=== PATIENT | female | born 1990 | race Hispanic/Latino ===

== ENCOUNTER 2021-02-13 13:24 | Outpatient (CLI) | payer OTHER ==
[2021-02-14 07:39] LABS: SARS-CoV-2 PCR by NAA Not Detected (NotDetected)
== END 2021-02-13 13:25 | disposition home or self-care (01) ==
LOC: CSHLAB 13:24
PROVIDERS: ATTEND Obstetrics & Gynecology
DX: Z20.822 Contact with and (suspected) exposure to COVID-19 (principal)
CPT/HCPCS: U0003; U0005

== ENCOUNTER 2021-02-15 17:15 | Inpatient (IN) | payer OTHER ==
[~2021-02-15 17:15] MED LIST: Bicitra 30 ML UDCUP PO PRN; Famotidine/PF 20 mg/2ml Vial SLOW IVP PRN; Lactated Ringer's 1,000 ML IV SCH; Ondansetron PF 4 MG/2 ML Vial IVP PRN; Promethazine HCl 25 MG/ML VIAL IM PRN; hydrALAZINE 20 MG/ML VIAL SLOW IVP PRN
[2021-02-16 13:36] VITALS: BMI 33.5
[2021-02-16 14:44] LABS: Hemoglobin 8.7 g/dL (12.0-15.5); Mean Corpuscular HGB CONC 31.2 g/dL (32.0-36.0); Mean Corpuscular Hemoglobin 23.6 pg (27.0-33.0); Mean Corpuscular Volume 75.6 fl (81.6-98.3); Platelet Count 264 10x3/uL (150-450); RBC Distribution Width 15.8 % (11.5-14.5); Red Blood Cell (RBC) Count 3.69 10x6/uL (3.90-5.03); White Blood Cell (WBC) Count 6.1 10x3/uL (3.5-10.5)
[2021-02-16 15:22] LABS: Syphilis Antibody Nonreactive (Nonreactive); Syphilis Antibody Index 0.05 S/CO (<1.00 Non-Reactive)
[2021-02-16 15:34] LABS: Hep B Surf Ag Non-Reactive S/CO (NonReactive)
[2021-02-16 15:39] LABS: HBSAg Index 0.17 S/CO (0-0.99); HIV (1/2) Antibody/Antigen Non-Reactive (NonReactive); HIV 1/2 INDEX 0.17 S/CO (<1.00)
[2021-02-16] MEDS ORDERED: Methylergonovine 0.2 MG/ML VIAL ONE (16:21)
[2021-02-16] MEDS ORDERED: Ondansetron PF 4 MG/2 ML Vial ONE (16:44)
[2021-02-16] MEDS ORDERED: Dexamethasone 4 mg/ml Vial ONE (16:44)
[2021-02-16] MEDS ORDERED: Metoclopramide HCl 10 MG/2 ML VIAL ONE (16:44)
[2021-02-16] MEDS ORDERED: Ketorolac Tromethamine 30 MG/ML VIAL ONE (16:45)
[2021-02-16] MEDS ORDERED: Oxytocin 10 UNITS/ML VIAL ONE ×2 (16:45→17:59)
[2021-02-16] MEDS ORDERED: Morphine PF 10 MG/10 ML VIAL ONE (16:46)
[2021-02-16] MEDS ORDERED: Phenylephrine 10 MG/ML VIAL ONE (16:50)
[2021-02-16 17:40] LABS: Amphetamine Detected (NotDetected); Barbiturates Screen Not Detected (NotDetected); Benzodiazepine Screen Detected (NotDetected); Cocaine Metabolite Screen Not Detected (NotDetected); Methadone Not Detected (NotDetected); Methamphetamine Detected (NotDetected); Opiate Screen Not Detected (NotDetected); Oxycodone Screen Not Detected (NotDetected); Phencyclidine (PCP) Not Detected (NotDetected); THC/Cannabinoid Screen Not Detected (NotDetected); Tricyclic Screen Not Detected (NotDetected)
[2021-02-16] MEDS ORDERED: diphenhydrAMINE 50 MG/ML VIAL IVP PRN (18:43)
[2021-02-16] MEDS ORDERED: Promethazine HCl 25 MG SUPP PR PRN (18:43)
[2021-02-16] MEDS ORDERED: Ondansetron PF 4 MG/2 ML Vial IVP PRN ×2 (18:43→21:16)
[2021-02-16] MEDS ORDERED: Promethazine HCl 25 MG/ML VIAL IM PRN ×2 (18:43→21:16)
[2021-02-16] MEDS ORDERED: Naloxone HCl 0.4 mg/ml Vial IV PRN (18:43)
[2021-02-16] MEDS ORDERED: Naloxone HCl 0.4 mg/ml Vial IVP PRN ×2 (18:43)
[2021-02-16] MEDS ORDERED: Meperidine HCl/PF 25 MG/ML VIAL SLOW IVP PRN (18:43)
[2021-02-16] MEDS ORDERED: Ondansetron HCl/PF 4 MG/2 ML Vial IVP PRN (18:43)
[2021-02-16] MEDS ORDERED: Hydrocerin (Eucerin) Cream 120 gm Jar TOP PRN (18:43)
[2021-02-16] MEDS ORDERED: Fentanyl 100 MCG/2 ML VIAL SLOW IVP PRN (18:43)
[2021-02-16] MEDS ORDERED: HYDROmorphone 2 MG/ML VIAL SLOW IVP PRN (18:44)
[2021-02-16] MEDS ORDERED: Communication Order-Pharmacy FS SCH (18:45)
[2021-02-16] MEDS ORDERED: diphenhydrAMINE 50 MG/ML VIAL ONE ×2 (20:18→20:19)
[2021-02-16] MEDS: CEFAZOLIN 2 GM in Premix Bag 1 BAG IVPB SCH ×2 (20:53→20:54)
[2021-02-16] MEDS ORDERED: diphenhydrAMINE 25 MG CAP PO PRN (21:16)
[2021-02-16] MEDS ORDERED: Methylergonovine 0.2 MG/ML VIAL IM PRN (21:16)
[2021-02-16] MEDS ORDERED: hydrALAZINE 20 MG/ML VIAL SLOW IVP PRN (21:16)
[2021-02-16] MEDS ORDERED: Boostrix 0.5 ML (Tdap) VIAL IM ONE (21:16)
[2021-02-16] MEDS ORDERED: Measles/Mumps/Rubella 10 MCG/0.5 ML VIAL SC ONE (21:16)
[2021-02-16] MEDS ORDERED: Varicella virus, LIVE 0.5 ML VIAL SC ONE (21:16)
[2021-02-16] MEDS ORDERED: Lanolin Ointment 7 GM TUBE TOP PRN (21:16)
[2021-02-16] MEDS ORDERED: Bisacodyl 10 MG SUPP PR PRN (21:16)
[2021-02-16] MEDS ORDERED: Ferrous Sulfate 325 MG TAB PO SCH (21:30)
[2021-02-16] MEDS ORDERED: Docusate 100 MG CAP PO SCH (21:30)
[2021-02-16] MEDS ORDERED: NS w/ Oxytocin 30 units 500 ML IV SCH (21:30)
[2021-02-16] MEDS: Ketorolac Tromethamine 30 MG/ML VIAL IVP PRN (22:34)
[2021-02-17 01:31] LABS: Hep C IgG Ab Non-Reactive (NonReactive); Hep C Index 0.11 S/CO (0-0.79)
[2021-02-17 06:18] LABS: Hemoglobin 7.5 g/dL (12.0-15.5); Mean Corpuscular HGB CONC 31.1 g/dL (32.0-36.0); Mean Corpuscular Hemoglobin 23.8 pg (27.0-33.0); Mean Corpuscular Volume 76.5 fl (81.6-98.3); Mean Platelet Volume 11.4 fl (7.4-10.4); Platelet Count 230 10x3/uL (150-450); RBC Distribution Width 15.6 % (11.5-14.5); Red Blood Cell (RBC) Count 3.15 10x6/uL (3.90-5.03); White Blood Cell (WBC) Count 13.7 10x3/uL (3.5-10.5)
[2021-02-17] MEDS ORDERED: Zolpidem Tartrate 5 MG TAB PO PRN (06:45)
[2021-02-17] MEDS: Prenatal Vitamin 1 TAB PO SCH (08:40)
[2021-02-17] MEDS: Ferrous Sulfate 325 MG TAB PO SCH ×2 (08:40→21:01)
[2021-02-17] MEDS: Docusate 100 MG CAP PO SCH ×2 (08:40→21:02)
[2021-02-17] MEDS: Ketorolac Tromethamine 30 MG/ML VIAL IVP PRN ×2 (08:53→14:35)
[2021-02-17] MEDS: HYDROcodone/Acetaminophen 5/325 mg Tablet PO PRN ×2 (12:09→21:02)
[2021-02-17] MEDS: Simethicone Chewable 80 MG TAB PO PRN (14:35)
[2021-02-18] MEDS: Ibuprofen 800 MG TAB PO SCH ×3 (05:08→21:07)
[2021-02-18] MEDS: HYDROcodone/Acetaminophen 5/325 mg Tablet PO PRN ×3 (09:08→17:40)
[2021-02-18] MEDS: Docusate 100 MG CAP PO SCH ×2 (09:09→21:07)
[2021-02-18] MEDS: Prenatal Vitamin 1 TAB PO SCH (09:09)
[2021-02-18] MEDS: Ferrous Sulfate 325 MG TAB PO SCH ×2 (09:09→21:07)
[2021-02-18] MEDS: Simethicone Chewable 80 MG TAB PO PRN ×2 (16:07→21:08)
[2021-02-19] MEDS: Ibuprofen 800 MG TAB PO SCH (05:17)
[2021-02-19 08:04] VITALS: BP 129/74; TEMP 97.6
[2021-02-19] MEDS: Prenatal Vitamin 1 TAB PO SCH (10:02)
[2021-02-19] MEDS: HYDROcodone/Acetaminophen 5/325 mg Tablet PO PRN (10:02)
[2021-02-19] MEDS: Docusate 100 MG CAP PO SCH (10:02)
[2021-02-19] MEDS: Ferrous Sulfate 325 MG TAB PO SCH (10:03)
== END 2021-02-19 13:10 | disposition home or self-care (01) | DRG 787 ==
LOC: CSHLD 17:15 → UNDOADMIN 02-16 12:39 → CSHLD 02-16 12:39 → CSHPED 02-16 22:10 → CSHLD 02-16 22:10 → UNDODISIN 02-19 13:10
PROVIDERS: ADMIT Obstetrics & Gynecology; ATTEND Obstetrics & Gynecology
PROC: 10D00Z1 Extraction of Products of Conception, Low, Open Approach (ICD-10-PCS; principal; 2021-02-16)
PROC: 0UB90ZZ Excision of Uterus, Open Approach (ICD-10-PCS; 2021-02-16)
DX: O34.211 Maternal care for low transverse scar from previous cesarean delivery (principal); O99.324 Drug use complicating childbirth; Z37.0 Single live birth; Z3A.39 39 weeks gestation of pregnancy; F15.90 Other stimulant use, unspecified, uncomplicated; F32.A Depression, unspecified; F41.9 Anxiety disorder, unspecified; O99.344 Other mental disorders complicating childbirth; Z91.018 Allergy to other foods; O34.13 Maternal care for benign tumor of corpus uteri, third trimester; D25.9 Leiomyoma of uterus, unspecified; Z20.822 Contact with and (suspected) exposure to COVID-19
CPT/HCPCS: 36415; 51702; 80306; 85027; 86762; 86780; 86803; 86850; 86900; 86901; 87340; 87389; 88305; 88307; J1100; J1200; J1885; J2274; J2370; J2405; J2590; J2765